=== PATIENT | female | born 1975 | race Caucasian/White ===

== ENCOUNTER 2017-08-02 00:50 | Emergency (ER) | payer BC, OTHER ==
[~2017-08-02] VITALS: Ht 170.2 cm; Wt 111.0 kg
--- NOTE | 2017-08-02 00:58 | ED.ADGEN ---
Past History Past Medical History: Sciatica Past Surgical History: Lumbar Laminectomy Adult General Chief Complaint Chief Complaint " I woke up this morning with really bad hip pain that radiates in to my Lt leg... It is the sciatica I ve had before... I ve had 4 back surgery's.. L5, - SI, l st in 2011. " " My grandmother recently ..and I have been over doing with my lifting and moving furniture around...." HPI HPI Patient is a 41 year old female who presents with above hx and complaints of sciatica in 2 left hip that radiates around into her Lt. thigh, patient denies any problems with defecation or urination. Patient denies any fever or chills. Patient denies any history cancer. Patient denies any history of immunosuppression. Patient has had multiple back surgeries. Recently had a MRI which stated she had moderate disc disease after previous repairs. Patient's feels she may have over lifted too much, or too much activity after the of her grandmother. Patient does take Flexeril as needed for his no home pain meds other than Mobic. Review of Systems Review of Systems Constitutional: Denies fever or chills [] Eyes: Denies change in visual acuity, redness, or eye pain [] HENT: Denies nasal congestion or sore throat [] Respiratory: Denies cough or shortness of breath [] Cardiovascular: No additional information not addressed in HPI [] GI: Denies abdominal pain, nausea, vomiting, bloody stools or diarrhea [] : Denies dysuria or hematuria [] Musculoskeletal: Complaints back pain and Lt hip joint pain [] Integument: Denies rash or skin lesions [] Neurologic: Denies headache, focal weakness or sensory changes [] Endocrine: Denies polyuria or polydipsia [] All other systems were reviewed and found to be within normal limits, except as documented in this note. Family History Family History Non-contributory Current Medications Current Medications Current Medications Medications (Trade) Dose Ordered Sig/Isidoro Start Time Stop Time Status Last Admin Dose Admin Ketorolac Tromethamine (Toradol) 60 mg 1X ONCE 08/02/17 01:15 08/02/17 01:37 DC 08/02/17 01:28 60 MG Lorazepam (Ativan) 2 mg 1X ONCE 08/02/17 01:15 08/02/17 01:37 DC 08/02/17 01:27 2 MG Methylprednisolone Acetate (DEPO-Medrol IM) 40 mg 1X ONCE 08/02/17 01:15 08/02/17 01:37 DC 08/02/17 01:28 40 MG Morphine Sulfate (Morphine 10mg Syringe) 10 mg 1X ONCE 08/02/17 01:15 08/02/17 01:37 DC 08/02/17 01:28 10 MG Orphenadrine Citrate (Norflex) 60 mg 1X ONCE 08/02/17 01:15 08/02/17 01:37 DC 08/02/17 01:27 60 MG Allergies Allergies Allergies Coded Allergies Type Severity Reaction Last Updated Verified dicyclomine Allergy Unknown 08/02/17 Yes nitrofurantoin Allergy Unknown 08/02/17 Yes Physical Exam Physical Exam Constitutional: Moderately acute distress, non-toxic appearance. [] HENT: Normocephalic, atraumatic, bilateral external ears normal, oropharynx moist, no oral exudates, nose normal. [] Eyes: PERRLA, EOMI, conjunctiva normal, no discharge. [] Neck: Normal range of motion, no tenderness, supple, no stridor. [] Cardiovascular:Heart rate regular rhythm, no murmur [] Lungs & Thorax: Bilateral breath sounds clear to auscultation [] Abdomen: Bowel sounds normal, soft, no tenderness, no masses, no pulsatile masses. Old scar. Obese. Patient denies any saddle loss Skin: Warm, dry, no erythema, no rash. [] Back: Left Lumbar sacral muscle spasm and tenderness, pain does radiate rate into left hip and around to 5 following sciatic route and branch , straight leg lift at 45 exacerbates pain.,no CVA tenderness. Does have findings of prior lumbar surgeries Extremities: No tenderness, no cyanosis, no clubbing, ROM intact, no edema. [] Neurologic: Alert and oriented X 3, normal motor function, normal sensory function, no focal deficits noted. []DTRs are +2 patella. Plantar reflexes good. Distal sensation intact. Psychologic: Affect anxious, judgement normal, mood normal. [] Current Patient Data Vital Signs Vital Signs Date Time Temp Pulse Resp B/P (MAP) Pulse Ox O2 Delivery O2 Flow Rate FiO2 08/02/17 01:00 98.3 93 24 98 Room Air Lab Results Laboratory Tests Test 08/02/17 01:35 08/02/17 01:51 Urine Collection Type Void Urine Color [place] Urine Clarity Hazy Urine pH 5.5 Urine Specific [place] 1.025 Urine Protein 100 mg/dl (NEG-TRACE) Urine Glucose (UA) 100 mg/dL (NEG) Urine Ketones (Stick) 40 mg/dL (NEG) Urine Blood Neg (NEG) Urine Nitrite Neg (NEG) Urine Bilirubin Neg (NEG) Urine Urobilinogen Dipstick 1 mg/dL (0.2 mg/dL) Urine Leukocyte Esterase Neg (NEG) Urine RBC Occ /HPF (0-2) Urine WBC 5-10 /HPF (0-4) Urine Squamous Epithelial Cells Mod /LPF Urine Bacteria Mod /HPF (0-FEW) Urine Mucus Mod /LPF POC Urine HCG, Qualitative hcg negative (Negative) EKG EKG [] Radiology/Procedures Radiology/Procedures [] Course & Med Decision Making Course & Med Decision Making Pertinent Labs and Imaging studies reviewed. (See chart for details). Discussed options of tx and evaluation, Pt. request only tx. of acute pain tonight. Will follow up with primary. Will follow up with neurosurgery if pain is persistent. Patient will continue her Flexeril as previously directed. Recommend follow-up a pain center and neurosurgery. [] Final Impression Final Impression 1. Sciatica[] 2. History of lumbar sacral disc disease Problems: Dragon Disclaimer Dragon Disclaimer This electronic medical record was generated, in whole or in part, using a voice recognition dictation system. CARMELA HAMILTON MD Aug 02, 2017 00:58
[2017-08-02] MEDS ORDERED: ORPHENADRINE CITRATE 60 MG/2 ML VIAL. IM ONE (01:15)
[2017-08-02] MEDS ORDERED: MORPHINE SULFATE 10 MG/ML SYRINGE. SQ ONE (01:15)
[2017-08-02] MEDS ORDERED: LORazepam 1 MG TABLET PO ONE (01:15)
[2017-08-02] MEDS ORDERED: methylPREDNISolone ACETATE 40 MG/ML VIAL. IM ONE (01:15)
[2017-08-02] MEDS ORDERED: KETOROLAC 60 MG/2 ML VIAL. IM ONE (01:15)
[2017-08-02] MEDS ORDERED: HYDR-79 PO (01:59)
[2017-08-02 02:05] VITALS: BP 156/100
[2017-08-02 02:29] LABS: BILIRUBIN,URINE NEG (NEG); CLARITY,URINE HAZY; COLOR,URINE AMBER; GLUCOSE,URINE 100 mg/dL (NEG)
[2017-08-02 02:30] LABS: BACTERIA,URINE MOD /HPF (0-FEW); NITRITE,URINE NEG (NEG); RBC,URINE OCC /HPF (0-2); SQUAMOUS EPITHELIAL CELL,UR MOD /LPF; UROBILINOGEN,URINE 1 mg/dL (0.2 mg/dL)
== END 2017-08-02 02:18 | disposition home or self-care (01) ==
LOC: ER 00:50
DX: M54.42 Lumbago with sciatica, left side (principal); M51.86 Other intervertebral disc disorders, lumbar region; Z88.8 Allergy status to other drugs, medicaments and biological substances
CPT/HCPCS: 81001; 81025; 87086; 96372; 99284; J1030; J1885; J2270; J2360